=== PATIENT | female | born 1985 | race Two or more races ===

== ENCOUNTER 2018-07-21 03:59 | Emergency (ER) | payer OTHER ==
[~2018-07-21] VITALS: Ht 160 cm; Wt 89.4 kg
[2018-07-21 04:14] VITALS: BP 148/100
[2018-07-21] MEDS ORDERED: TDAP [DIPH/PERTUSSIS/TET] 0.5 ML VIAL IM ONE ×2 (04:39→05:00)
[2018-07-21] MEDS ORDERED: AMOX/CLAVULANATE 875 MG TABLET ONE (04:45)
[2018-07-21] MEDS ORDERED: AMOX/CLAVULANATE 875 MG TABLET PO ONE (05:00)
== END 2018-07-21 04:59 | disposition home or self-care (01) ==
LOC: ER 04:07
DX: S61.452A Open bite of left hand, initial encounter (principal); W50.3XXA Accidental bite by another person, initial encounter; Y93.89 Activity, other specified; Y92.89 Other specified places as the place of occurrence of the external cause; Y99.8 Other external cause status
CPT/HCPCS: 90715; A4606; A6402; Z7610